=== PATIENT | female | born 1935 | race Caucasian/White ===

== ENCOUNTER 2023-03-15 14:54 | Day surgery (SDC) | payer MEDICARE ==
[2023-03-15] MEDS ORDERED: Depo-Medrol 40 MG/ML IM ONE (14:55)
[2023-03-15] MEDS ORDERED: BUPIVACAINE 0.5% VIAL IJ ONE (14:55)
[2023-03-15] MEDS ORDERED: XYLOCAINE-MPF 1% 5ML SDV IJ ONE (14:55)
--- NOTE | 2023-03-15 19:51 | XRAY ---
Indication: Left knee injection. Intraoperative fluoroscopy provided for 5 seconds. Single digital spot image submitted for interpretation demonstrates needle tip projecting over the left femur intercondylar notch. Small amount of contrast injected for needle tip placement. Correlate with intraoperative findings/report.
--- NOTE | 2023-03-15 19:51 | XRAY ---
Indication: Right knee injection. Intraoperative fluoroscopy provided for 6 seconds. Single digital spot image submitted for interpretation demonstrates needle tip projecting over the right femur intercondylar notch. Small amount of contrast injected for needle tip placement. Correlate with intraoperative findings/report.
--- NOTE | 2023-03-16 12:37 | XRAY ---
6 seconds of fluoroscopy was used in surgery for a right intra-articular knee injection.
--- NOTE | 2023-03-16 12:37 | XRAY ---
5 seconds of fluoroscopy was used in surgery for a left intra-articular knee injection.
== END 2023-03-15 17:40 | disposition home or self-care (01) ==
LOC: SDC-PAIN 14:54
PROVIDERS: ATTEND Psychiatry & Neurology Pain Medicine
DX: M17.0 Bilateral primary osteoarthritis of knee (principal); E11.9 Type 2 diabetes mellitus without complications
CPT/HCPCS: 20610; 73560; 77002; 82947; J1030; Q9966